=== PATIENT | male | born 1990 | race Caucasian/White ===

== ENCOUNTER 2020-10-02 16:03 | Emergency (ER) | payer OTHER ==
[2020-10-02] MEDS ORDERED: KETOROLAC TROMETHAMINE 30MG/ML ONE (17:17)
== END 2020-10-02 17:55 | disposition home or self-care (01) ==
LOC: EDH 16:03 → EEVIPCON 16:03 → EDH 17:55
DX: S90.02XA Contusion of left ankle, initial encounter (principal); X50.1XXA Overexertion from prolonged static or awkward postures, initial encounter; Y93.89 Activity, other specified; Y92.89 Other specified places as the place of occurrence of the external cause; Y99.8 Other external cause status
CPT/HCPCS: 29515; 73610; 96372; 99283; J1885